=== PATIENT | male | born 1935 | race Two or more races ===

== ENCOUNTER 2024-05-05 07:59 | Emergency (ER) | payer MEDICARE, MEDICAID, SELFPAY ==
[2024-05-05] VITALS (35 sets, daily range): BP systolic 89–157; BP diastolic 46–77; PULSE 55–89; RESP 8–99; TEMP 36.3–37.1; O2SAT 94–100; BMI 25.0
--- NOTE | 2024-05-05 08:17 | XR_ITS ---
Examination: Left shoulder 2 views TECHNIQUE: AP internal rotation Y-view left shoulder 2 views Exam date and time: May 05, 2024 0831 hours INDICATIONS: Onset shoulder pain today. 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
--- NOTE | 2024-05-05 08:18 | EDRME_ITS ---
Rapid Medical Screening Exam [facility] Arrival date/time: 05/05/24 07:59 88-year-old male with a history of hyperlipidemia, hypertension, presents to the emergency room with a chief complaint of a deformity to his left shoulder. Patient was sent over by his [facility] for 10 out of 10 pain. I have greeted and performed a focused initial assessment of this patient. A comprehensive ED assessment and evaluation of the patient, analysis of all test results, and completion of the medical decision making process will be conducted by additional ED providers. Vital signs: Vital Signs Temperature 98.7 F 05/05/24 08:01 Pulse Rate 89 05/05/24 08:01 Respiratory Rate 17 05/05/24 08:01 Blood Pressure 132/70 H 05/05/24 08:01 Pulse Oximetry (%) 94 L 05/05/24 08:01 Oxygen Delivery Method Room Air 05/05/24 08:01 Vital signs reviewed by provider: Yes
--- NOTE | 2024-05-05 08:24 | PC.NURSE ---
PT BIB [facility] PER EMS PT HAS DISLOCATED SHOULDER FROM 2 WEEKS PRIOR AND IS PENDING A STAT REFERRAL. [facility] CALLED BECAUSE HE WAS HAVING PAIN THAT WAS UNRELIVED FROM MEDICATIONS. PT IS STATELESS SPEAKING ONLY AND NEED TO MAKE PT AWARE WHAT YOU ARE DOING TO HAVE HIM COMPLY HE HAS A HX OF DEMENTIA.
--- NOTE | 2024-05-05 09:08 | PC.CC ---
Reanna GALINDO was consulted by Zahra Ardon regarding a shoulder dislocation for the patient. MATEO made contact with JACQUELIN Jha at [facility] who reports patient was asked multiple times to be sent to the hospital to have his shoulder looked at as he has hardware placed. Patient refused multiple times to come to the hospital. Family also attempted to convince patient to come to the hospital and he continued to decline. Per JACQUELIN Jha, the facility Doctor ordered a STAT x-ray which showed a dislocation. Patient was referred to outpatient ORTHO but is pending insurance authorization, per Yudelka. Today JACQUELIN Jah, convinced the patient to come to the hospital and was the transported by EMS. JACQUELIN Jha, reports that patient can be combative at times and wanted to make sure staff was aware. ASW provided update to [facility].
--- NOTE | 2024-05-05 09:20 | PD.EDUPEX ---
Upper Extremity Injury RME/HPI General Chief Complaint: Extremity Injury, Upper Stated Complaint: PAIN DUE TO LT SHOULDER DISLOCATION Time Seen by Provider: 05/05/24 08:56 Arrival date/time: 05/05/24 07:59 RME / HPI RME / HPI narrative: 05/05/24 07:59 88-year-old male with a history of hyperlipidemia, hypertension, presents to the emergency room with a chief complaint of a deformity to his left shoulder. Patient was sent over by his senior living for 10 out of 10 pain. I have greeted and performed a focused initial assessment of this patient. A comprehensive ED assessment and evaluation of the patient, analysis of all test results, and completion of the medical decision making process will be conducted by additional ED providers. DR. YI MAIN ED EVALUATION: This section includes all my notes and documentations, including HPI, PE, and ED course.? Quinton Yi MD HPI: 88 year old male with past medical history significant for dementia presents to the Emergency Department BIB from [facility] with complaint of left shoulder dislocation and pain per [facility] staff. Started about 8 days ago. No obvious injury. ROS: Can't obtain from the patient due to severe dementia. Physical Exam: General:? Alert.? No acute distress when remaining still.? Eyes:? Conjunctivae and lids clear. ENT:? No nasal congestion.? ? Neck:? Supple. Heart:? RRR. Lungs:? No respiratory distress.? Good air movement.? No rhonchi, wheezing, rales.? Musculoskeletal: Remarkable for left shoulder deformity and limited range of motion due to pain. Distally, no NVT injury. I reviewed all diagnostic test results. 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 At this point, diagnoses include closed dislocation of left shoulder. For left shoulder dislocation reduction, we used Versed 5 mg IV X 2 and fentanyl 50 mcg IV X 2 for conscious sedation, see procedure note. Due to severe respiratory distress postprocedure, he was given Narcan and flumazenil with significant improvement. I discussed the case with Dr. Chaidez ([facility]).? About the presentation and exam and diagnostics and treatments here.? And need of further care there. Will accept the patient. No orthostatic service here today. Quinton Yi MD Related Data Home Medications ?Medication ?Instructions ?Recorded ?Confirmed atorvastatin 40 mg tablet (Lipitor) 40 mg PO HS CHOLESTEROL #0 tabs 04/15/15 12/20/23 folic acid 1 mg tablet 1 mg PO QDAY SUPPLEMENT #0 tabs 04/15/15 12/20/23 Previous Rx's ?Medication ?Instructions ?Recorded clopidogrel 75 mg tablet (Plavix) 75 mg PO QDAY #30 tabs 04/20/15 lisinopril 20 mg tablet 20 mg PO BID #60 tabs 04/20/15 ferrous sulfate 325 mg (65 mg 325 mg PO BID #60 tabs 05/19/17 iron) tablet amlodipine 5 mg tablet 10 mg (2 x 5 mg) PO QDAY #30 tabs 05/20/17 metoprolol tartrate 25 mg tablet 25 mg PO BID #60 tabs 05/20/17 Allergies Allergy/AdvReac Type Severity Reaction Status Date / Time No Known Allergies Allergy Verified 04/02/17 23:42 Course Quality Measures none Orders Category Date Time Status COVID-19 Screening Questionnaire NOW Care 05/05/24 13:36 Active Insert IV STAT Care 05/05/24 08:18 Active Referral - [employer] Stat Cons 05/05/24 10:31 Active Transfer to another facility [Transfer/Discharge] Stat Discharge 05/05/24 13:39 Active XR shoulder LT min 2V Stat Exams 05/05/24 08:17 Completed CBC Stat Lab 05/05/24 08:18 Completed CMP [Comprehensive Metabolic Panel] Stat Lab 05/05/24 09:16 Completed Midazolam Inj [Versed Inj] Med 05/05/24 12:16 Discontinued 5 mg IV X1 ONE Midazolam Inj [Versed Inj] Med 05/05/24 12:54 Discontinued 5 mg IV X1 ONE Midazolam Inj [Versed Inj] Med 05/05/24 12:51 Discontinued 6 mg .ROUTE .STK-MED ONE NALOXONE INJ (Vial) [Narcan Inj (Vial)] Med 05/05/24 13:12 Discontinued 1 mg IV X1 ONE fentaNYL INJ [Sublimaze Inj] Med 05/05/24 12:16 Discontinued 50 mcg IV X1 ONE fentaNYL INJ [Sublimaze Inj] Med 05/05/24 12:55 Discontinued 50 mcg IV X1 ONE flumazeniL [Romazicon Inj] Med 05/05/24 13:13 Discontinued 0.2 mg IVP X1 ONE Vital Signs Vital signs: Vital Signs Temperature 98.7 F 05/05/24 08:01 Pulse Rate 89 05/05/24 08:01 Respiratory Rate 17 05/05/24 08:01 Blood Pressure 132/70 H 05/05/24 08:01 Pulse Oximetry (%) 94 L 05/05/24 08:01 Oxygen Delivery Method Room Air 05/05/24 08:01 Procedures -ED Orthopedic Joint Reduction Joint #1: Time Out Performed: Yes Side: Left Joint Reduction Location: shoulder Analgesia: procedural sedation Shoulder Technique Used (if applicable): traction/counter-traction Technique used: traction/counter-traction Post-reduction neuro exam: intact Post-reduction vascular: intact Post Reduction X-Ray Obtained: No Splint Applied: Yes Patient Tolerated Procedure: no complications Additional Comments: Initially, we successfully reduced the dislocation. But dislocated again while applying the arm sling. Didn't attempt again due to prosthetic joint and the dislocation occurred over a week ago. Quinton Yi MD Extremity Injury MDM Narrative MDM Narrative:: IGuillermina am scribing for and in the presence of Dr. Yi. Patient data External records reviewed:: EMS form and [facility] records Clinical information provided by:: EMS Social determinants that could affect healthcare access:: housing ([facility] ) Patient has the following chronic illnesses:: Dementia How is presenting disease/condition affected by chronic disease/condition?: uneffected by Evaluation data The following diagnostics were reviewed and interpreted by me:: lab results and radiology exam(s) Lab and/or radiology exams considered but not ordered:: none Interpretation Summary: Closed dislocation of left shoulder Medications / Prescriptions Medications or Prescriptions considered but not ordered:: none Medication administrations:: Medication Administration History Discontinued Medications Fentanyl Citrate (Fentanyl Cit Inj 50 Mcg/Ml Amp 2ml) 50 mcg IV X1 ONE Stop: 05/05/24 12:17 Last Admin: 05/05/24 12:53 Dose: 50 mcg Documented By: BD Fentanyl Citrate (Fentanyl Cit Inj 50 Mcg/Ml Amp 2ml) 50 mcg IV X1 ONE Stop: 05/05/24 12:56 Last Admin: 05/05/24 12:59 Dose: 50 mcg Documented By: BD Flumazenil (Flumazenil Inj 0.1 Mg/Ml Vial 10 Ml) 0.2 mg IVP X1 ONE Stop: 05/05/24 13:14 Last Admin: 05/05/24 13:15 Dose: 0.2 mg Documented By: BD Midazolam HCl (Midazolam Inj 1 Mg/Ml Vial 2 Ml) 5 mg IV X1 ONE Stop: 05/05/24 12:17 Last Admin: 05/05/24 12:50 Dose: 5 mg Documented By: BD Midazolam HCl (Midazolam Inj 1 Mg/Ml Vial 2 Ml) 5 mg IV X1 ONE Stop: 05/05/24 12:55 Last Admin: 05/05/24 12:58 Dose: 5 mg Documented By: BD Midazolam HCl (Midazolam Inj 1 Mg/Ml Vial 2 Ml) Confirm Administered Dose 6 mg .ROUTE .STK-MED ONE Stop: 05/05/24 12:52 Last Admin: 05/05/24 13:23 Dose: Not Given Documented By: BD Non-Admin Reason: Duplicate Medication on eMAR Naloxone HCl (Naloxone Inj 0.4 Mg/Ml Vial) 1 mg IV X1 ONE Stop: 05/05/24 13:13 Last Admin: 05/05/24 13:18 Dose: 1 mg Documented By: SAIRA Co-signed By: [facility] Fentanyl Citrate 100 mcg IV total, Flumazenil 0.2 mg IVP, Midazolam HCl 10 mg IV total, Naloxone HCl 1 mg IV Consultations Consultation(s) initiated? (list below): No Diagnosis Upper Extremity Injury Differential Diagnosis: dislocation of shoulder, fracture of clavicle and other (shoulder fracture) Most likely diagnosis given after review of the tests above:: Closed dislocation of left shoulder Admission Indicated Admission indicated?: not indicated Explain why admission is indicated or not indicated:: No orthopedic service here today Admission Request Was there a request for admission?: No Disposition Plan Disposition Plan: Transfer Discharge Plan Plan Patient Disposition: [facility] Pt Being Transferred to: [facility] Service Needed for Transfer: Orthopedics Prescriptions/Referrals Prescriptions/Med Rec: No Action folic acid 1 MG tablet 1 mg PO QDAY Qty: 0 atorvastatin [Lipitor] 40 MG tablet 40 mg PO HS Qty: 0 lisinopril 20 MG tablet 20 mg PO BID Qty: 60 0RF clopidogrel [Plavix] 75 MG tablet 75 mg PO QDAY Qty: 30 0RF ferrous sulfate 325 mg (65 mg iron) tablet 325 mg PO BID Qty: 60 0RF amlodipine 5 mg Tablet 10 mg PO QDAY Qty: 30 0RF metoprolol tartrate 25 mg Tablet 25 mg PO BID Qty: 60 0RF Referrals: No Primary/Family,Physician [Primary Care Provider] - In 1 week Problem List Clinical Impression: Closed dislocation of left shoulder Patient/Caregiver Discharge Instructions Print Language: Turkish Stand Alone Forms: Sonia Award Info., Patient Portal Info Letter
[2024-05-05 09:38] LABS: Basophils % (Auto) 0 % (0-2.5); Eosinophils % (Auto) 1 % (0-10); Hematocrit 35.1 % (41.0-53.0); Immature Granulocytes % (Auto) 1 % (0-0); Immature Granulocytes Auto 0.03 Thou/mm3 (0.00-0.00); Lymphocytes # (Auto) 1.5 Thou/mm3 (1.0-4.8); Lymphocytes % (Auto) 25 % (10-50); Mean Corpuscular HGB Conc 34.2 g/dl (31.0-37.0); Mean Corpuscular Hemoglobin 32.7 pg (25.0-35.0); Mean Corpuscular Volume 96 fL (80-100); Monocytes # (Auto) 0.3 Thou/mm3 (0.0-0.8); Monocytes % (Auto) 6 % (0-12); Neutrophils # (Auto) 3.9 Thou/mm3 (1.8-7.7); Neutrophils % (Auto) 67 % (37-80); Nucleated Red Blood Cell % 0 /100 WBC (0); Platelet Count 144 Thou/mm3 (140-440); RDW Standard Deviation 49.2 fL (35.1-43.9); Red Blood Count 3.67 Miln/mm3 (4.50-5.90); White Blood Count 5.8 Thou/mm3 (3.8-10.6)
[2024-05-05 10:01] LABS: Alanine Aminotransferase 10 U/L (10-49); Albumin, Serum 4.2 gm/dL (3.4-4.8); Albumin/Globulin Ratio 1.6 (1.2-2.2); Alkaline Phosphatase 119 U/L (46-116); Anion Gap 7 (7-16); Aspartate Amino Transferase 11 U/L (0-34); BUN/Creatinine Ratio 24 Ratio (12-20); Bilirubin,Total 0.5 mg/dL (0.3-1.2); Blood Urea Nitrogen 22 mg/dL (9-23); Calcium 9.7 mg/dL (8.3-10.6); Calcium (Corrected) 9.7 mg/dL (8.5-10.1); Carbon Dioxide 25.9 mMol/L (20.0-31.0); Chloride 108 mMol/L (98-107); Creatinine (Component) 0.9 mg/dL (0.6-1.3); Globulin 2.7 gm/dL (2.3-3.5); Glucose 122 mg/dL (74-106); Osmolality,Calculated 285 (275-295); Potassium 4.1 mMol/L (3.4-5.1); Sodium 141 mMol/L (136-145); Total Protein 6.9 gm/dL (5.7-8.2); eGFR > 60 See Note
--- NOTE | 2024-05-05 10:30 | PC.CC ---
Addendum entered by Brooklyn Mcdonald RN 05/05/24 15:10: 1508 called [facility] to inform crop picker time, left VM. 1505 called ED charge nurse and informed abpot crop picker time is 1830. Addendum entered by Brooklyn Mcdonald RN 05/05/24 15:05: 1456 sent paperwork to [facility]. Called [facility], spoke to [facility] and set up the transport. The crop picker time is 1830. 1445 transfer packet is complete with CD inside including all signatures. Transfer packet and number to call for report given to charge nurse. Addendum entered by Brooklyn Mcdonald RN 05/05/24 13:13: 1307 received call from Dariela at [facility] that pt is accepted for ED to ED transfer. Accepted by Dr. Chaidez. Report can be called at [phone]. Addendum entered by Brooklyn Mcdonald RN 05/05/24 13:02: 1254 received call from [facility], spoke to Dariela and initiated the transfer. Ro wants to speak with Dr. Alejandra. Conference call connected. 1241 received call from [facility], spoke to Steffany, She stated Dr. Mireles stated he doesn't do this kind of procedure. But pt can be followed as outpatient with any orthopedic. Therefore, transfer is declined. Addendum entered by Brooklyn Mcdonald RN 05/05/24 12:18: 1217 called [facility] to initiate the transfer, left VM. Addendum entered by Brooklyn Mcdonald RN 05/05/24 12:16: 1216 images pushed over to [facility]. Addendum entered by Brooklyn Mcdonald RN 05/05/24 12:11: 1207 received call from Steffany at [facility], she wants to speak with Dr. Alejandra. Conference call connected. Then Ny tried to connect Dr. Mireles orthopedic on the line for peer to peer. But unable to do so. She stated she will call back once Dr. Mireles call her back. Addendum entered by Brooklyn Mcdonald RN 05/05/24 12:07: 1207 clinicals sent to [facility]. Addendum entered by Brooklyn Mcdonald RN 05/05/24 11:49: 1147 called [facility], spoke to Steffany and initiated the transfer request. She stated she will call me back. Addendum entered by Brooklyn Mcdonald RN 05/05/24 11:12: 1111 Called [facility] to initiate the transfer, left VM. Original Note: 1053 clinicals sent to [facility]. [address] Alejandra that pt needs to be transferred for left shoulder dislocation with prosthetic shoulder joint needs orthopedic services.
--- NOTE | 2024-05-05 12:24 | PC.NURSE ---
ATTEMPTED TO GET CONSENT FOR CONSCIOUS SEDATION NO ANSWERING MESSAGE LEFT TO CALL BACK
--- NOTE | 2024-05-05 12:28 | PC.NURSE ---
TELEPHONE CONSENT FOR CONSCIOUS SEDATION OBTAINED FROM [facility] ADVISED THAT IF WERE ARE NOT ABLE TO PLACE LEFT SHOULDER BACK IN TO PLACE HE WILL BE TRANSFERRED OUT TO ANOTHER FACILITY
[2024-05-05] MEDS: MIDAZOLAM INJ 1 MG/ML VIAL 2 ML 5 MG IV ×2 (12:50→12:58)
[2024-05-05] MEDS: fentaNYL CIT INJ 50 mCg/ML AMP 2ML IV ×2 (12:53→12:59)
[2024-05-05] MEDS: FLUMAZENIL INJ 0.1 MG/ML VIAL 10 ML 0.2 MG IVP (13:15)
[2024-05-05] MEDS: NALOXONE INJ 0.4 MG/ML VIAL 1 MG IV (13:18)
--- NOTE | 2024-05-05 13:29 | PC.NURSE ---
@ 1244 pt is in room for conscious sedation @1245 time out called @1246 procedure start @1250 5mg versed given @1253 50mcg fentanyl given provider tried to set arm pt was not fulled sedated ordered 5mg versed, 50mcg of fetanyl @1258 5mg versed given @1259 50mcg of fentanyl given 1300 rt was bagging pt decreased respirations 1301 procedure complete arm places in immobilizer 1306 rt bagging pt decreased respirations 1315 flumazenil given per order 1316 pt started open eyes 1319 1mg narcan given 1322 pt now opening eyes moving legs responded appropriately
--- NOTE | 2024-05-05 13:41 | PC.NURSE ---
PER DR. YI, PT ACCEPTED TO [facility] IN [place]
--- NOTE | 2024-05-05 13:44 | PC.NURSE ---
per brother pt has not been exposed to covid
--- NOTE | 2024-05-05 13:49 | PC.NURSE ---
linen changed and pt moved up on gurney with 2 person assist. Pt opening eyes when talked to then closes eyes again. Will continue to monitor
--- NOTE | 2024-05-05 13:58 | PC.NURSE ---
pt now responding quicker when name called
--- NOTE | 2024-05-05 16:35 | PC.NURSE ---
CALLED BROTHER NEY TO ADVISED THAT HE IS GOING TO [facility] HE ASKED IF HE COULD GO TO [facility] ADVISED THAT [facility] WAS THE ONLY ONE THAT ACCEPTED THEM.
== END 2024-05-05 17:35 | disposition short-term general hospital (02) ==
PROVIDERS: Nurse Practitioner Family; Emergency Provider Emergency Medicine
DX: S43.005A Unspecified dislocation of left shoulder joint, initial encounter (principal); X58.XXXA Exposure to other specified factors, initial encounter; E78.5 Hyperlipidemia, unspecified; I10 Essential (primary) hypertension; F03.90 Unspecified dementia, unspecified severity, without behavioral disturbance, psychotic disturbance, mood disturbance, and anxiety
CPT/HCPCS: 23655; 36415; 73030; 80053; 85025; 96374; 99285; J2250; J2310; J3010; J3490

== ENCOUNTER 2024-05-07 20:10 | Inpatient (IN) | payer MEDICARE, MEDICAID, SELFPAY ==
--- NOTE | 2024-05-07 20:31 | PC.NURSE ---
Accessed chart to assist primary nurse.
[2024-05-07 20:44] VITALS: BP 132/65; PULSE 80; RESP 17; TEMP 36.8; O2SAT 98
[2024-05-07 21:04] LABS: Basophils % (Auto) 0 % (0-2.5); Eosinophils % (Auto) 0 % (0-10); Hemoglobin 12.3 g/dL (13.5-16.0); Immature Granulocytes % (Auto) 0 % (0-0); Immature Granulocytes Auto 0.02 Thou/mm3 (0.00-0.00); Lymphocytes # (Auto) 1.5 Thou/mm3 (1.0-4.8); Lymphocytes % (Auto) 21 % (10-50); Mean Corpuscular HGB Conc 34.2 g/dl (31.0-37.0); Mean Corpuscular Hemoglobin 32.2 pg (25.0-35.0); Mean Corpuscular Volume 94 fL (80-100); Monocytes # (Auto) 0.6 Thou/mm3 (0.0-0.8); Monocytes % (Auto) 8 % (0-12); Neutrophils % (Auto) 70 % (37-80); Nucleated Red Blood Cell % 0 /100 WBC (0); Platelet Count 148 Thou/mm3 (140-440); RDW Standard Deviation 46.7 fL (35.1-43.9); Red Blood Count 3.82 Miln/mm3 (4.50-5.90); White Blood Count 7.1 Thou/mm3 (3.8-10.6)
[2024-05-07 21:23] LABS: Alanine Aminotransferase 17 U/L (10-49); Albumin, Serum 4.5 gm/dL (3.4-4.8); Anion Gap 13 (7-16); Aspartate Amino Transferase 37 U/L (0-34); BUN/Creatinine Ratio 21 Ratio (12-20); Blood Urea Nitrogen 21 mg/dL (9-23); Calcium 9.9 mg/dL (8.3-10.6); Calcium (Corrected) 9.9 mg/dL (8.5-10.1); Carbon Dioxide 22.9 mMol/L (20.0-31.0); Chloride 107 mMol/L (98-107); Globulin 2.7 gm/dL (2.3-3.5); Glucose 97 mg/dL (74-106); Osmolality,Calculated 287 (275-295); Potassium 3.9 mMol/L (3.4-5.1); Sodium 143 mMol/L (136-145); Total Protein 7.2 gm/dL (5.7-8.2); eGFR > 60 See Note
[2024-05-07 21:24] LABS: Albumin/Globulin Ratio 1.7 (1.2-2.2); Alkaline Phosphatase 140 U/L (46-116)
[2024-05-08] VITALS: BP 117/54; PULSE 76; RESP 16; TEMP 36.5; O2SAT 95
[2024-05-08 04:00] VITALS: BP 103/61; PULSE 71; RESP 15; TEMP 36.7; O2SAT 99
--- NOTE | 2024-05-08 07:25 | PC.NURSE ---
md NOTIFIED ON PT. bg PG 68 . PT. OPEN EYES AND TELLS NAME BUT NO VERBALIZE AFTER THAT. BEEN REFUSING TO EAT OR DRINK.
[2024-05-08] MEDS: DEXTROSE 50%-WATER INJ 50 ML SYRINGE 25 ML IV (07:47)
[2024-05-08 08:00] VITALS: BP 115/54; PULSE 80; RESP 17; TEMP 36.3; O2SAT 97
[2024-05-08 09:16] LABS: Basophils % (Auto) 0 % (0-2.5); Eosinophils % (Auto) 0 % (0-10); Hematocrit 35.9 % (41.0-53.0); Hemoglobin 12.2 g/dL (13.5-16.0); Immature Granulocytes % (Auto) 0 % (0-0); Immature Granulocytes Auto 0.03 Thou/mm3 (0.00-0.00); Lymphocytes # (Auto) 1.8 Thou/mm3 (1.0-4.8); Lymphocytes % (Auto) 18 % (10-50); Mean Corpuscular Hemoglobin 32.5 pg (25.0-35.0); Mean Corpuscular Volume 96 fL (80-100); Monocytes # (Auto) 0.6 Thou/mm3 (0.0-0.8); Monocytes % (Auto) 6 % (0-12); Neutrophils # (Auto) 7.5 Thou/mm3 (1.8-7.7); Neutrophils % (Auto) 75 % (37-80); Nucleated Red Blood Cell % 0 /100 WBC (0); Platelet Count 148 Thou/mm3 (140-440); RDW Standard Deviation 48.9 fL (35.1-43.9); Red Blood Count 3.75 Miln/mm3 (4.50-5.90)
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
--- NOTE | 2024-05-08 09:31 | ESHP_ITS ---
<Statement entered by Jenny Bailon MD - 05/09/24 00:32> Patient was seen and examined by me personally. I have directly supervised and reviewed documentation by the team resident and agree with its findings with any exceptions or additional findings as below. Plan of care was discussed with the attending, Dr. Urbina. New transfer overnight. Patient is a 88-year-old male with past medical history of dementia, diabetes mellitus, hypertension, BPH, shoulder arthroplasty 7 years ago, and CVA who initially presented to [facility] ED on 05/05/2024 due to left shoulder pain and assessment for dislocation. At that time, patient was transferred to [facility] for orthopedic coverage. Per chart review, [facility] orthopedics stated that this patient was not a candidate for surgical intervention for the dislocation and that the dislocation was of chronic status. The recommendation was that the patient follow-up with staffing specialist outpatient. Patient is now transferring back to [facility] on 05/07/2024. Patient is a resident at [facility] and he is wheelchair dependent at baseline with dementia. Last night and this morning, there were concerns that the patient was non-interactive and refusing care as well as food. Blood glucose was 68 this morning and patient was refusing juice, therefore 25 ml of D50 was administered. Later in the morning patient seemed to be taking PO spoonfuls of pudding. He passed swallow evaluation who suggested dysphagia 2, mechanical altered diet. On AM labs, creatinine markedly increased from 1.0 to 2.2 in just 12 hours, repeat draw also showed the same increase in creatinine. Uncertain what may have caused the acute kidney injury, other than poor PO intake, as the patient did not receive any medications overnight since arrival to the facility. Will start IV fluids at 75 ml/hr for total 2L. Will await improvement in kidney function prior to discharge back to [facility]. Jenny Bailon, PGY-2 Documentation for date of: 05/08/24 HPI History of Present Illness Chief complaint: L shoulder dislocation History of present illness: 88-year-old male with past medical history of dementia, diabetes mellitus, hypertension, BPH, shoulder arthroplasty 7 years ago, CVA presented after being transferred from [facility] for a shoulder dislocation. Patient had initially presented to [facility] for left shoulder pain and assessment for dislocation. At that time, patient was transferred to [facility] for orthopedic coverage. Patient is transferring back on 05/07/2024. Per chart review, orthopedic physician stated that this patient was not a candidate for surgical intervention for the dislocation and that the dislocation was of chronic status. At this time, the recommendation was that the patient follow-up with staffing specialist outpatient. Patient is a resident at [facility] and he is wheelchair dependent at baseline with dementia. Medical history: As listed above Surgical history: Unable to obtain Allergies: No known allergies per facility records Medications: Acetaminophen as needed, amlodipine 10 mg daily, Dulcolax suppository as needed, Fleet enema as needed, Flomax daily, lidocaine patch daily for left shoulder chronic pain, atorvastatin 40 mg at bedtime, losartan 100 mg daily, Milk of Magnesia suspension as needed, naproxen to 20 mg as needed. Family History: Unable to obtain Social history: Resident at [facility]; unable to obtain remaining social history ROS: Unable to obtain as patient answers very rarely Exam Vital Signs Temp Pulse Resp BP Pulse Ox O2 Del Method 98.0 F 71 15 103/61 99 Room Air 05/08/24 04:00 05/08/24 04:00 05/08/24 04:00 05/08/24 04:00 05/08/24 04:00 05/08/24 04:00 Narrative Exam Physical Exam: GENERAL: Awake, answers questions very rarely and with low voice, appears stated age HEENT: NC/AT. Moist mucosa. PERRLA/EOMI. CARDIO: Heart RRR, II/ systolic ejection murmur noted on L sternal border 2nd intercostal space, no JVD. PULM: No coughing or visible SOB. Lungs CTA B/L. GI: Abdomen soft, NT/ND, +BS. SKIN/MSK/EXT: No wounds/discoloration/rashes/edema/amputations. +Pedal pulses present B/L. NEURO: Oriented x0 (unable to assess as patient answers very rarely), no focal neurological deficits noted - baseline dementia Results: Labs 05/09/24 05:30 05/09/24 05:30 Labs: Short CBC 05/07/24 05/08/24 Range/Units 20:52 08:59 WBC 7.1 10.0 D (3.8-10.6) Thou/mm3 Hgb 12.3 L 12.2 L (13.5-16.0) g/dL Hct 36.0 L 35.9 L (41.0-53.0) % Plt Count 148 148 (140-440) Thou/mm3 BMP 05/07/24 20:52 Sodium 143 Potassium 3.9 Chloride 107 Carbon Dioxide 22.9 BUN 21 Creatinine 1.0 Glucose 97 Calcium 9.9 Liver Function 05/07/24 Range/Units 20:52 Total Bilirubin 1.0 D (0.3-1.2) mg/dL AST 37 H (0-34) U/L ALT 17 (10-49) U/L Alkaline Phosphatase 140 H D (46-116) U/L Albumin 4.5 (3.4-4.8) gm/dL Quality Measures Quality Measures VTE prophylaxis Advance care planning discussed with:: sibling and other Medications Home Medications and Allergies Home Medications ?Medication ?Instructions ?Recorded ?Confirmed ?Type atorvastatin 40 mg tablet (Lipitor) 40 mg PO HS CHOLES TEROL #0 tabs 04/15/15 05/07/24 History acetaminophen 325 mg capsule 325 mg PO Q4H PRN pain (s ella 05/07/24 05/07/24 History score 1-3) amlodipine 10 mg tablet 10 mg PO 1XD 05/07/24 History hydrochlorothiazide 12.5 mg capsule 12.5 mg PO 1XD 09/2405/07/24 History lidocaine 4 % topical patch 1 patch topical Q12H PRN p ain 05/07/24 05/07/24 History (Aspercreme (lidocaine)) losartan 100 mg tablet 100 mg PO 1XD 05/07/2405/07 History naproxen sodium 220 mg tablet 220 mg PO Q8H pain 05/0705/07/24 History (Flanax (naproxen)) tamsulosin 0.4 mg capsule 0.4 mg PO 1XD 05/07/2405/07 History tramadol 50 mg tablet 50 mg PO 2XD 05/07/24 History Allergies Allergy/AdvReac Type Severity Reaction Status Date / Time No Known Allergies Allergy Verified 04/02/17 23:42 Visit Medications Acetaminophen (Acetaminophen 325 Mg Tablet) 650 mg PO Q6HR PRN PRN Reason: PAIN SCALE 1-3 (mild Stop: 06/06/24 20:29 Hydrocodone Bitart/Acetaminophen (Hydrocodone/Apap 5/325 Tablet) 1 tab PO Q6HR PRN PRN Reason: PAIN SCALE 4-6 (Moderate Stop: 05/12/24 20:30 Atorvastatin Calcium (Atorvastatin Calcium 20 Mg Tablet) 40 mg PO HS AILYN Stop: 06/07/24 20:59 Dextrose (Dextrose 50%-Water Inj 50 Ml Syringe) 25 ml IV Q15MIN PRN PRN Reason: BG 50-70 responsive npo pt Stop: 06/07/24 07:36 Last Admin: 05/08/24 07:47 Dose: 25 ml Dextrose (Dextrose 50%-Water Inj 50 Ml Syringe) 50 ml IV Q15MIN PRN PRN Reason: BG <50 OR BG <70 & pt unresponsive Stop: 06/07/24 07:36 Glucagon (Glucagon Inj 1 Mg Vial) 1 mg IM Q15MIN PRN PRN Reason: BG <70, and no IV access Insulin Human Lispro (Insulin Lispro (Admelog) 1 Unit/0.01 Ml Unit) 0 unit SC AC [facility]; Protocol Stop: 06/07/24 11:29 Tamsulosin HCl (Tamsulosin Hcl 0.4 Mg Capsule) 0.4 mg PO QDAY AILYN Stop: 06/07/24 08:59 Last Admin: 05/08/24 08:26 Dose: Not Given Discontinued Medications Non-Formulary Medication (Lidocaine [Aspercreme (Lidocaine)]) 1 patch TOPICAL Q12H PRN PRN Reason: pain Assessment & Plan Plan 88-year-old male with past medical history of dementia, hypertension, BPH, shoulder arthroplasty 7 years ago, CVA presented after being transferred from [facility] for a shoulder dislocation; pending SNF placement. #Chronic shoulder dislocation Patient is transferring back from [facility] after no surgery was completed as the patient is not a candidate Per note from [facility] orthopedic surgeon, Dr. Chaidez, due to the chronicity of the dislocation and the fact that there is no neurovascular compromise or skin compromise a reduction under anesthesia would bring significant risks to the patient; furthermore, a close reduction has the risk of fracture. As such, recommendation is that the patient's pain be managed and that patient can follow-up outpatient with orthopedic surgery Plan: Multimodal analgesia Follow-up with orthopedic surgery outpatient #NOVA #Prerenal Azotemia Patient has abrupt elevation in creatinine from 1.0 to 2.2/2.3 No new medications were started; moreover, suspicion is that the patient is having prerenal azotemia Patient does have poor p.o. intake and appears dry on examination Plan: IV resuscitation Bladder scan showed ~150cc; will monitor Avoid nephrotoxic agents Follow-up morning labs #Hypertension #Hyperlipidemia Patient is on home amlodipine 10 mg, hydrochlorothiazide 12.5 mg, losartan 100 mg Patient also takes home atorvastatin 40 mg p.o. at bedtime Plan: Restart when appropriate, patient's blood pressure within target level at this time #Dementia #History of CVA #BPH Chronic medical conditions, not currently pertinent to the following presentation Continue home tamsulosin Hospital Management; Lines: PIV Diet: Carb consistent, dysphagia II Bowel: Senna GI prophylaxis: not needed DVT prophylaxis: SCDs Dispo: Treating NOVA, pending SNF placement Code: Full Patient seen and assessed with attending Dr. Urbina and senior resident Dr. Adamaris Shah, PGY-1 Attending Provider Attestation/Addendum I have examined the patient, reviewed labs and imaging findings, discussed the case with the resident(s), and reviewed entered orders. I agree with the plan of care as outlined in this note. Patient seen at bedside. Patient was transferred overnight. Patient is relatively nonverbal and no history can be obtained. Patient was transferred back from [facility] after it was determined she is not a surgical candidate for his dislocation of the reverse left shoulder arthroplasty. We will continue pain management as needed. Patient was planned for discharge today although he has had an acute increase in his creatinine. Creatinine on admission 1.0 and BUN. Today's renal panel shows creatinine of 2.2 and BUN 28. At this time we do not have any reason for patient's acute increase in creatinine. Likely secondary to prerenal azotemia as patient has had poor oral intake. We will start low-dose IV fluids and if no improvement we will consult nephrology. Dr. Carlitos MD
[2024-05-08 09:34] LABS: Alanine Aminotransferase 14 U/L (10-49); Albumin, Serum 4.2 gm/dL (3.4-4.8); Albumin/Globulin Ratio 1.6 (1.2-2.2); Alkaline Phosphatase 133 U/L (46-116); Anion Gap 13 (7-16); Aspartate Amino Transferase 17 U/L (0-34); BUN/Creatinine Ratio 13 Ratio (12-20); Blood Urea Nitrogen 28 mg/dL (9-23); Calcium 9.6 mg/dL (8.3-10.6); Calcium (Corrected) 9.6 mg/dL (8.5-10.1); Carbon Dioxide 20.2 mMol/L (20.0-31.0); Chloride 108 mMol/L (98-107); Creatinine (Component) 2.2 mg/dL (0.6-1.3); Globulin 2.7 gm/dL (2.3-3.5); Glucose 167 mg/dL (74-106); Osmolality,Calculated 290 (275-295); Potassium 4.4 mMol/L (3.4-5.1); Sodium 141 mMol/L (136-145); Total Protein 6.9 gm/dL (5.7-8.2); eGFR 28 See Note
[2024-05-08 11:18] VITALS: BMI 12.0
[2024-05-08 12:00] VITALS: BP 111/47; PULSE 81; RESP 18; TEMP 36.3; O2SAT 96
[2024-05-08 12:07] LABS: Albumin, Serum 4.1 gm/dL (3.4-4.8); Anion Gap 11 (7-16); BUN/Creatinine Ratio 14 Ratio (12-20); Blood Urea Nitrogen 32 mg/dL (9-23); Calcium 9.5 mg/dL (8.3-10.6); Calcium (Corrected) 9.5 mg/dL (8.5-10.1); Carbon Dioxide 22.5 mMol/L (20.0-31.0); Chloride 109 mMol/L (98-107); Creatinine (Component) 2.3 mg/dL (0.6-1.3); Glucose 99 mg/dL (74-106); Osmolality,Calculated 290 (275-295); Phosphorous 5.1 mg/dL (2.4-5.1); Potassium 4.4 mMol/L (3.4-5.1); Sodium 142 mMol/L (136-145); eGFR 26 See Note
[2024-05-08] MEDS: TAMSULOSIN HCL 0.4 MG CAPSULE PO (13:46)
[2024-05-08] MEDS: RINGERS LACTATED 1000 ML 1,000 ML 75 ML IV (13:57)
[2024-05-08 16:00] VITALS: BP 123/48; PULSE 66; RESP 18; TEMP 36.3; O2SAT 94
--- NOTE | 2024-05-08 17:45 | PC.NURSE ---
pt. urinated in brief unmeasurable output due to pt. urinated on brief.
--- NOTE | 2024-05-08 17:53 | PC.NURSE ---
notified about pt. had the red conjunctiva to the right eye with yellow discharge.
[2024-05-08 20:00] VITALS: BP 104/51; PULSE 73; RESP 17; TEMP 36.1; O2SAT 97
[2024-05-08] MEDS: ATORVASTATIN CALCIUM 20 MG TABLET 40 MG PO (20:09)
[2024-05-09] VITALS: BP 126/61; PULSE 81; RESP 18; TEMP 36.4; O2SAT 96
[2024-05-09] MEDS: RINGERS LACTATED 1000 ML 1,000 ML 75 ML IV ×2 (03:07→20:03)
[2024-05-09 04:00] VITALS: BP 123/54; PULSE 72; RESP 18; TEMP 36.5; O2SAT 94
[2024-05-09 06:34] LABS: Basophils % (Auto) 0 % (0-2.5); Eosinophils # (Auto) 0.1 Thou/mm3 (0.0-0.5); Eosinophils % (Auto) 1 % (0-10); Hematocrit 30.9 % (41.0-53.0); Hemoglobin 10.6 g/dL (13.5-16.0); Immature Granulocytes % (Auto) 0 % (0-0); Immature Granulocytes Auto 0.02 Thou/mm3 (0.00-0.00); Lymphocytes # (Auto) 2.1 Thou/mm3 (1.0-4.8); Lymphocytes % (Auto) 29 % (10-50); Mean Corpuscular HGB Conc 34.3 g/dl (31.0-37.0); Mean Corpuscular Hemoglobin 32.7 pg (25.0-35.0); Mean Corpuscular Volume 95 fL (80-100); Monocytes # (Auto) 0.7 Thou/mm3 (0.0-0.8); Monocytes % (Auto) 10 % (0-12); Neutrophils # (Auto) 4.3 Thou/mm3 (1.8-7.7); Neutrophils % (Auto) 59 % (37-80); Nucleated Red Blood Cell % 0 /100 WBC (0); Platelet Count 133 Thou/mm3 (140-440); RDW Standard Deviation 49.1 fL (35.1-43.9); Red Blood Count 3.24 Miln/mm3 (4.50-5.90); White Blood Count 7.2 Thou/mm3 (3.8-10.6)
[2024-05-09 06:51] LABS: Alanine Aminotransferase 11 U/L (10-49); Albumin, Serum 3.7 gm/dL (3.4-4.8); Albumin/Globulin Ratio 1.7 (1.2-2.2); Alkaline Phosphatase 115 U/L (46-116); Anion Gap 8 (7-16); Aspartate Amino Transferase 17 U/L (0-34); BUN/Creatinine Ratio 22 Ratio (12-20); Bilirubin,Total 0.9 mg/dL (0.3-1.2); Blood Urea Nitrogen 48 mg/dL (9-23); Calcium 9.1 mg/dL (8.3-10.6); Calcium (Corrected) 9.3 mg/dL (8.5-10.1); Chloride 109 mMol/L (98-107); Creatinine (Component) 2.2 mg/dL (0.6-1.3); Globulin 2.2 gm/dL (2.3-3.5); Glucose 95 mg/dL (74-106); Osmolality,Calculated 293 (275-295); Potassium 4.2 mMol/L (3.4-5.1); Sodium 141 mMol/L (136-145); Total Protein 5.9 gm/dL (5.7-8.2); eGFR 28 See Note
[2024-05-09 08:00] VITALS: BP 140/61; PULSE 68; RESP 16; TEMP 36.5; O2SAT 99
[2024-05-09] MEDS: TAMSULOSIN HCL 0.4 MG CAPSULE PO (08:20)
[2024-05-09] MEDS: SENNA TABLET 1 TAB PO (08:20)
--- NOTE | 2024-05-09 11:00 | XR_ITS ---
EXAMINATION: US renal BI HISTORY: NOVA COMPARISON: 05/17/2017, CT abdomen pelvis FINDINGS: Right kidney length: 10.8 cm. Right collecting system: No hydronephrosis. Right parenchyma: Mild cortical thinning. Cortical scarring. Inferior right renal pole exophytic 6.1 cm anechoic round lesion, previously measuring 5.[address] No internal color Doppler. Left kidney Length: 10.4 cm. Left collecting system: No hydronephrosis. Left parenchyma: Mild increased echogenicity. Interpolar 2.0 cm left renal hypoechoic/anechoic lesion without internal color Doppler. Bladder: Within normal limits. Bilateral ureteral jets seen. No post void imaging available. Other: Prostate with coarse calcifications. Prostate volume 33.0 cc. IMPRESSION: 1. Mild right cortical thinning and increased echogenicity of the left kidney, which can be seen with medical renal disease. 2. No obstructive nephrolithiasis or hydronephrosis identified. 3. Mild enlargement of the prostate gland.
[2024-05-09 12:00] VITALS: BP 144/60; PULSE 67; RESP 17; TEMP 37; O2SAT 99
--- NOTE | 2024-05-09 13:16 | CHAP ---
Patient was sleeping. The Spiritual Care Volunteer prayed silently. (Volunteer was in the hospital from 12:51-13:16).
--- NOTE | 2024-05-09 13:23 | ESCONSULT_ITS ---
HPI Data of Consult Consult date: 05/09/24 Requesting Physician: Fredis Urbina MD Admitting Provider: Fredis Urbina MD Attending Provider: Fredis Urbina MD Primary Care Provider: Physician No Primary/Family Consult Narrative Reason for consult: Acute kidney injury History of present illness: Patient is [place]-speaking, seems to have some hearing loss and had difficulty in communicating, so most of the history is taken from chart review. At baseline, patient is a resident at [facility] and is wheelchair dependent with baseline dementia A 88-year-old male patient with significant past medical history of dementia, diabetes mellitus, hypertension, BPH, shoulder arthroplasty 7 years ago, CVA initially presented to [facility] on 05/10/2023 for left shoulder pain and assessment for dislocation. During that time, patient was transferred to [facility] for further management. In [facility], other potation in that facility stated that patient was not a good surgical candidate for surgical intervention and the dislocation appears to be of chronic etiology. So patient was recommended to follow-up in outpatient basis with the orthopedic tech. So patient was transferred back to [facility] on 05/07/2024. Per chart review, patient did not get any procedures, contrast, pain medications Chart review of [facility] medical records, did not show any procedures, nephrotoxic medications, pain medications, low blood pressures during the hospitalization. Initial renal functions appears to be normal on 05/07/2024, on 05/08/2024 creatinine seems to be increased to 2.2. No low blood pressures/nephrotoxic medications noted during his hospital stay in [facility] 05/09/2024 Patient was seen and examined at the bedside. No acute overnight events. Patient appears to have difficulty to communicate at baseline. Denies any other complaints. Vitals are stable. Labs showed BUN 48, creatinine 2.2. Urine electrolytes are ordered Patient was getting renal ultrasound at the time of examination which showed a simple renal cyst in both kidneys. No hydroureteronephrosis noted Recommended to place condom catheter to monitor urine output as patient is wetting his diaper and not able to calculate output accurately. cc:: cc: Fredis Urbina MD Review of Systems Review of Systems ROS Unobtainable: unobtainable due to medical condition Exam Vital Signs Temp Pulse Resp BP Pulse Ox O2 Del Method 98.6 F 67 17 144/60 H 99 Room Air 05/09/24 12:00 05/09/24 12:00 05/09/24 12:00 05/09/24 12:00 05/09/24 12:00 05/09/24 12:00 Narrative Exam General: Awake. HEENT: Normocephalic, atraumatic, mucous membranes moist. Heart: Regular rate and rhythm, no murmurs. Lungs: Clear to auscultation with no wheezing or crackles. Abdomen: Soft, nondistended, nontender, positive bowel sounds. ?No guarding or rebound tenderness. Neurologic: Alert and oriented x3, no gross neurological deficit, and patient able to move all 4 extremities. Extremities: No edema. Skin: No rash or ecchymoses. Results Labs 05/10/24 05:41 05/10/24 05:41 Labs: Short CBC 05/09/24 Range/Units 05:30 WBC 7.2 (3.8-10.6) Thou/mm3 Hgb 10.6 L (13.5-16.0) g/dL Hct 30.9 L (41.0-53.0) % Plt Count 133 L (140-440) Thou/mm3 BMP 05/09/24 05:30 Sodium 141 Potassium 4.2 Chloride 109 H Carbon Dioxide 24.0 BUN 48 H Creatinine 2.2 H Glucose 95 Calcium 9.1 Liver Function 05/09/24 Range/Units 05:30 Total Bilirubin 0.9 (0.3-1.2) mg/dL AST 17 (0-34) U/L ALT 11 (10-49) U/L Alkaline Phosphatase 115 (46-116) U/L Albumin 3.7 (3.4-4.8) gm/dL Quality Measures Quality Measures VTE prophylaxis Advance care planning discussed with:: patient and other Medications Home Medications and Allergies Home Medications ?Medication ?Instructions ?Recorded ?Confirmed ?Type atorvastatin 40 mg tablet (Lipitor) 40 mg PO HS CHOLES TEROL #0 tabs 04/15/15 05/07/24 History acetaminophen 325 mg capsule 325 mg PO Q4H PRN pain (s ella 05/07/24 05/07/24 History score 1-3) amlodipine 10 mg tablet 10 mg PO 1XD 05/07/24 History hydrochlorothiazide 12.5 mg capsule 12.5 mg PO 1XD 09/2405/07/24 History Held on 05/10/24. Instructions: Resume on 05/17/24. Hold due to recent NOVA, resume with follow up renal panel lidocaine 4 % topical patch 1 patch topical Q12H PRN p ain 05/07/24 05/07/24 History (Aspercreme (lidocaine)) losartan 100 mg tablet 100 mg PO 1XD 05/07/2405/07 History naproxen sodium 220 mg tablet 220 mg PO Q8H pain 05/0705/07/24 History (Flanax (naproxen)) tamsulosin 0.4 mg capsule 0.4 mg PO 1XD 05/07/2405/07 History tramadol 50 mg tablet 50 mg PO 2XD 05/07/24 History Allergies Allergy/AdvReac Type Severity Reaction Status Date / Time No Known Allergies Allergy Verified 04/02/17 23:42 Visit Medications Acetaminophen (Acetaminophen 325 Mg Tablet) 650 mg PO Q6HR PRN PRN Reason: PAIN SCALE 1-3 (mild Stop: 06/06/24 20:29 Hydrocodone Bitart/Acetaminophen (Hydrocodone/Apap 5/325 Tablet) 1 tab PO Q6HR PRN PRN Reason: PAIN SCALE 4-6 (Moderate Stop: 05/12/24 20:30 Atorvastatin Calcium (Atorvastatin Calcium 20 Mg Tablet) 40 mg PO HS [facility] Stop: 06/07/24 20:59 Last Admin: 05/08/24 20:09 Dose: 40 mg Dextrose (Dextrose 50%-Water Inj 50 Ml Syringe) 25 ml IV Q15MIN PRN PRN Reason: BG 50-70 responsive npo pt Stop: 06/07/24 07:36 Last Admin: 05/08/24 07:47 Dose: 25 ml Dextrose (Dextrose 50%-Water Inj 50 Ml Syringe) 50 ml IV Q15MIN PRN PRN Reason: BG <50 OR BG <70 & pt unresponsive Stop: 06/07/24 07:36 Glucagon (Glucagon Inj 1 Mg Vial) 1 mg IM Q15MIN PRN PRN Reason: BG <70, and no IV access Lactated Ringer's (Lactated Ringers) 1,000 mls @ 75 mls/hr IV .[id number] [facility] Stop: 05/09/24 16:19 Last Admin: 05/09/24 03:07 Dose: 75 mls/hr Insulin Human Lispro (Insulin Lispro (Admelog) 1 Unit/0.01 Ml Unit) 0 unit SC AC [facility]; Protocol Stop: 06/07/24 11:29 Last Admin: 05/09/24 07:39 Dose: Not Given Sennosides (Senna Tablet) 1 tab PO QDAY [facility]; Protocol Stop: 06/08/24 08:59 Last Admin: 05/09/24 08:20 Dose: 1 tab Tamsulosin HCl (Tamsulosin Hcl 0.4 Mg Capsule) 0.4 mg PO QDAY AILYN Stop: 06/07/24 08:59 Last Admin: 05/09/24 08:20 Dose: 0.4 mg Discontinued Medications Non-Formulary Medication (Lidocaine [Aspercreme (Lidocaine)]) 1 patch TOPICAL Q12H PRN PRN Reason: pain Tamsulosin HCl (Tamsulosin Hcl 0.4 Mg Capsule) 0.4 mg PO X1 ONE Stop: 05/08/24 13:42 Last Admin: 05/08/24 13:46 Dose: 0.4 mg Assessment & Plan Plan A 88-year-old male patient with significant past medical history of dementia, diabetes mellitus, hypertension, BPH, shoulder arthroplasty 7 years ago, CVA initially presented to [facility] on 05/10/2023 for left shoulder pain and assessment for dislocation and admitted for acute kidney injury # Acute kidney injury Etiology, unknown-likely ATN in the setting of sudden worsening of renal functions -Patient was not communicating properly at his baseline. -[facility] records are reviewed, no evidence of low blood pressures, contrast, nephrotoxic medications, change in renal functions noted -No evidence of nephrotoxic medications, low pressures noted in [facility] -On 05/09/2024, BUN 48, creatinine 2.2 -Patient's baseline creatinine is 0.9-1.1 Plan -Renal ultrasound ordered -Urinary electrolytes are ordered to measure fractional excretion of sodium -Condom catheter was ordered to monitor urine output -Recommended to continue maintain IV fluids for now -Monitor renal functions and avoid nephrotoxic medications #Chronic shoulder dislocation #Hypertension #Hyperlipidemia #Dementia #History of CVA #BPH -Rest of the medical conditions to be treated as per primary team Thank you for allowing us us to involved in the care of the patient Patient plan of care was discussed with the attending physician, Dr. Jase Moore, PGY1 Attending Provider Attestation/Addendum Patient seen and examined with resident physician Dr. Zabala. Note reviewed, agree with findings and recommendations. Unexplained NOVA. No inciting factors. Suspect prerenal azotemia from decreased p.o. intake. Will monitor very closely. Thank you Fredis for allowing me to participate in the care of Mr. Barrett
--- NOTE | 2024-05-09 14:25 | PCS.ST ---
Continue D2 with thins. 1:1 FEEDER needed. No further ELECTRONICS SPECIALIST services needed. see report for additional details.
--- NOTE | 2024-05-09 14:45 | PD.RESPRO ---
Documentation for date of: 05/09/24 Subjective Subjective Interval history: No acute events overnight.?Patient seen and examined at bedside this AM.?Patient is slightly more interactive this morning than yesterday, verbally responds to questions in Thai. Per speech evaluation, patient needs to be spoon-fed.?Patient denies pain. Labs and vitals were reviewed.?Creatinine is still 2.2 unfortunately despite receiving fluids overnight, receiving 2L of LR. Added another 1L of LR to be given overnight. Suspected possible urinary obstruction however bladder scans continued to show <100 cc urine and patient was noted to have active wetting of the briefs. Nephrology was therefore consulted. Orders placed for condom catheter and strict I&O measurements and charting. A renal US was ordered. Otherwise, as patient is full code and has chronic shoulder dislocation as well as failure to thrive, would like to plan for goals of care discussion with primary decision-maker. Review of systems otherwise negative except what is mentioned above. Exam Vital Signs Temp Pulse Resp BP Pulse Ox O2 Del Method 98.6 F 67 17 144/60 H 99 Room Air 05/09/24 12:00 05/09/24 12:00 05/09/24 12:00 05/09/24 12:00 05/09/24 12:00 05/09/24 12:00 Narrative Exam Physical Exam: GENERAL: Awake, answers questions very rarely and with low voice, appears stated age HEENT: NC/AT. Moist mucosa. PERRLA/EOMI. CARDIO: Heart RRR, II/ systolic ejection murmur noted on L sternal border 2nd intercostal space, no JVD. PULM: No coughing or visible SOB. Lungs CTA B/L. GI: Abdomen soft, NT/ND, +BS. SKIN/MSK/EXT: No wounds/discoloration/rashes/edema/amputations. +Pedal pulses present B/L. NEURO: Oriented x0 (unable to assess as patient answers very rarely), no focal neurological deficits noted - baseline dementia Objective Labs 05/10/24 05:41 05/10/24 05:41 Labs: Laboratory Results - last 24 hr 05/09/24 05:30 WBC 7.2 RBC 3.24 L Hgb 10.6 L Hct 30.9 L MCV 95 MCH 32.7 MCHC 34.3 RDW Std Deviation 49.1 H Plt Count 133 L Neut % (Auto) 59 Lymph % (Auto) 29 [place] % (Auto) 10 Eos % (Auto) 1 Baso % (Auto) 0 Neut # (Auto) 4.3 Lymph # (Auto) 2.1 [place] # (Auto) 0.7 Eos # (Auto) 0.1 Baso # (Auto) 0.0 Immature Gran # (Auto) 0.02 H Absolute Nucleated RBC 0.00 Immature Gran % 0 Nucleated RBC % 0 Sodium 141 Potassium 4.2 Chloride 109 H Carbon Dioxide 24.0 Anion Gap 8 BUN 48 H Creatinine 2.2 H Estim Creat Clear Calc Not Performed. eGFR 28 L BUN/Creatinine Ratio 22 H Glucose 95 Calculated Osmolality 293 Calcium 9.1 Corrected Calcium 9.3 Total Bilirubin 0.9 AST 17 ALT 11 Alkaline Phosphatase 115 Total Protein 5.9 Albumin 3.7 Globulin 2.2 L Albumin/Globulin Ratio 1.7 Quality Measures Quality Measures VTE prophylaxis Advance care planning discussed with:: patient Assessment & Plan Assessment Current Active Medications: Generic Name Dose Route Start Last Admin Trade Name Freq PRN Reason Stop Dose Admin Acetaminophen 650 mg 05/07/24 20:30 Acetaminophen 325 Mg Tablet PO 06/06/24 20:29 Q6HR PRN PAIN SCALE 1-3 (mild Hydrocodone Bitart/Acetaminophen 1 tab 05/07/24 20:31 Hydrocodone/Apap 5/325 Tablet PO 05/12/24 20:30 Q6HR PRN PAIN SCALE 4-6 (Moderate Atorvastatin Calcium 40 mg 05/08/24 21:00 05/08/24 20:09 Atorvastatin Calcium 20 Mg Tablet PO 06/07/24 20:59 40 mg HS AILYN Administration Dextrose 25 ml 05/08/24 07:37 05/08/24 07:47 Dextrose 50%-Water Inj 50 Ml Syringe IV 06/07/24 07:36 25 ml Q15MIN PRN Administration BG 50-70 responsive npo pt Dextrose 50 ml 05/08/24 07:37 Dextrose 50%-Water Inj 50 Ml Syringe IV 06/07/24 07:36 Q15MIN PRN BG <50 OR BG <70 & pt unresponsive Glucagon 1 mg 05/08/24 07:37 Glucagon Inj 1 Mg Vial IM Q15MIN PRN BG <70, and no IV access Lactated Ringer's 1,000 mls @ 75 mls/hr 05/08/24 13:40 05/09/24 03:07 Lactated Ringers IV 05/09/24 16:19 75 mls/hr .[id number] AILYN Administration Insulin Human Lispro 0 unit 05/08/24 11:30 05/09/24 07:39 Insulin Lispro (Admelog) 1 Unit/0.01 Ml Unit SC 06/07/24 11:29 Not Given AC AILYN Protocol Sennosides 1 tab 05/09/24 09:00 05/09/24 08:20 Senna Tablet PO 06/08/24 08:59 1 tab QDAY [facility] Administration Protocol Tamsulosin HCl 0.4 mg 05/08/24 09:00 05/09/24 08:20 Tamsulosin Hcl 0.4 Mg Capsule PO 06/07/24 08:59 0.4 mg QDAY AILYN Administration Plan 88-year-old male with past medical history of dementia, hypertension, BPH, shoulder arthroplasty 7 years ago, CVA presented after being transferred from [facility] for a shoulder dislocation; pending SNF placement. #NOVA #Prerenal Azotemia Patient has abrupt elevation in creatinine from 1.0 to 2.2/2.3 No new medications were started; moreover, suspicion is that the patient is having prerenal azotemia Patient does have poor p.o. intake and appears dry on examination Obstructive etiology seems unlikely given low bladder volume and is actively urinating Plan: IV resuscitation, patient received 3L thus far Bladder scan continues to show <100 cc; will monitor Avoid nephrotoxic agents Follow-up morning labs Nephrology consulted, appreciate recommendations Condom catheter order placed Strict I&O measurement and charting #Chronic shoulder dislocation Patient is transferring back from [facility] after no surgery was completed as the patient is not a candidate Per note from [facility] orthopedic surgeon, Dr. Chaidez, due to the chronicity of the dislocation and the fact that there is no neurovascular compromise or skin compromise a reduction under anesthesia would bring significant risks to the patient; furthermore, a close reduction has the risk of fracture. As such, recommendation is that the patient's pain be managed and that patient can follow-up outpatient with orthopedic surgery Plan: Multimodal analgesia Follow-up with orthopedic surgery outpatient #Hypertension #Hyperlipidemia Patient is on home amlodipine 10 mg, hydrochlorothiazide 12.5 mg, losartan 100 mg Patient also takes home atorvastatin 40 mg p.o. at bedtime Plan: Restart when appropriate, patient's blood pressure within target level at this time #Dementia #History of CVA #BPH Chronic medical conditions, not currently pertinent to the following presentation Continue home tamsulosin Hospital Management; Lines: PIV Diet: Carb consistent, dysphagia II Bowel: Senna GI prophylaxis: not needed DVT prophylaxis: SCDs Dispo: Treating NOVA, will discharge back to [facility] once cleared Code: Full Patient plan of care was discussed with the attending physician, Dr. Urbina. Jenny Bailon, PGY-2 Attending Provider Attestation/Addendum I have examined the patient, reviewed labs and imaging findings, discussed the case with the resident(s), and reviewed entered orders. I agree with the plan of care as outlined in this note, with these additional summaries/recommendations: Patient seen at bedside. No acute overnight events. Despite IV fluids patient's renal function has only mildly improved. Creatinine 2.3 yesterday and 2.2 today. Nephrology consulted and pending urine electrolytes. Renal ultrasound showed mild right cortical thinning and increased echogenicity of the left kidney with no nephrolithiasis or hydronephrosis. Condom Cates catheter ordered to monitor urinary output. Continue as needed pain management for dislocation of the reverse left shoulder arthroplasty. Patient has severe underlying dementia and no reliable history obtained today. Blood pressure 123/54 today and we will continue to hold home antihypertensives for now and reinstitute as tolerated. Repeat hematology and chemistry panel in AM. Dr. Carlitos MD
[2024-05-09 16:00] VITALS: BP 155/57; PULSE 63; RESP 17; TEMP 36.8; O2SAT 98
[2024-05-09 20:00] VITALS: BP 98/68; PULSE 67; RESP 18; TEMP 36.9; O2SAT 97
[2024-05-09] MEDS: ATORVASTATIN CALCIUM 20 MG TABLET 40 MG PO (20:03)
[2024-05-09 20:31] LABS: Collection Type, Urine Clean Catch
[2024-05-09 20:40] LABS: Bilirubin,Urine Negative (Negative); Blood,Urine Negative (Negative); Clarity,Urine Clear (Clear/Hazy); Color,Urine Lt-Yellow (Lt Yel-Yel); Culture Indicated,Urine Not Indicated; Glucose, Urine Negative (Negative); Ketones,Urine Trace (Negative); Leukocyte Esterase,Urine Negative (Negative); Nitrite,Urine Negative (Negative); Protein,Urine Negative (Neg - Trace); RBC,Urine < 1 /hpf (0-3); Specific Gravity,Urine 1.016 (1.001-1.035); Squamous Epithelial Cell,Urine < 1 /hpf (0-5); Urobilinogen,Urine Negative mg/dL (0.0-1.0); WBC,Urine 1 /hpf (0-5)
[2024-05-09 20:47] LABS: Creatinine,Random Urine 83 mg/dL (30-125); Protein Total, Random Urine 16 mg/dL (1-14); Sodium,Urine Random 92.9 mMol/L (20.0-110.0)
[2024-05-10] VITALS: BP 162/74; PULSE 70; RESP 18; TEMP 36.8; O2SAT 97
[2024-05-10 04:00] VITALS: BP 151/60; PULSE 65; RESP 18; TEMP 36.6; O2SAT 98
[2024-05-10 06:31] LABS: Basophils % (Auto) 0 % (0-2.5); Eosinophils # (Auto) 0.1 Thou/mm3 (0.0-0.5); Eosinophils % (Auto) 1 % (0-10); Hematocrit 31.9 % (41.0-53.0); Immature Granulocytes % (Auto) 0 % (0-0); Immature Granulocytes Auto 0.02 Thou/mm3 (0.00-0.00); Lymphocytes # (Auto) 2.5 Thou/mm3 (1.0-4.8); Lymphocytes % (Auto) 36 % (10-50); Mean Corpuscular HGB Conc 34.5 g/dl (31.0-37.0); Mean Corpuscular Volume 96 fL (80-100); Monocytes # (Auto) 0.5 Thou/mm3 (0.0-0.8); Monocytes % (Auto) 8 % (0-12); Neutrophils # (Auto) 3.7 Thou/mm3 (1.8-7.7); Neutrophils % (Auto) 54 % (37-80); Nucleated Red Blood Cell % 0 /100 WBC (0); Platelet Count 122 Thou/mm3 (140-440); RDW Standard Deviation 48.9 fL (35.1-43.9); Red Blood Count 3.33 Miln/mm3 (4.50-5.90); White Blood Count 6.8 Thou/mm3 (3.8-10.6)
[2024-05-10 07:11] LABS: Alanine Aminotransferase 15 U/L (10-49); Albumin, Serum 3.8 gm/dL (3.4-4.8); Albumin/Globulin Ratio 1.5 (1.2-2.2); Alkaline Phosphatase 120 U/L (46-116); Anion Gap 10 (7-16); Aspartate Amino Transferase 23 U/L (0-34); BUN/Creatinine Ratio 25 Ratio (12-20); Bilirubin,Total 0.9 mg/dL (0.3-1.2); Blood Urea Nitrogen 25 mg/dL (9-23); Calcium 9.6 mg/dL (8.3-10.6); Calcium (Corrected) 9.8 mg/dL (8.5-10.1); Carbon Dioxide 22.6 mMol/L (20.0-31.0); Chloride 110 mMol/L (98-107); Globulin 2.6 gm/dL (2.3-3.5); Glucose 93 mg/dL (74-106); Osmolality,Calculated 289 (275-295); Potassium 4.3 mMol/L (3.4-5.1); Sodium 143 mMol/L (136-145); Total Protein 6.4 gm/dL (5.7-8.2); eGFR > 60 See Note
[2024-05-10 07:56] VITALS: BP 173/70; PULSE 67; RESP 17; TEMP 36.5; O2SAT 99
[2024-05-10] MEDS: TAMSULOSIN HCL 0.4 MG CAPSULE PO (08:49)
[2024-05-10] MEDS: SENNA TABLET 1 TAB PO (08:49)
--- NOTE | 2024-05-10 09:02 | PC.SS ---
Follow up note: Pt is d/c for today back to [facility]. SS has informed Sharifa Dickinson from [facility] Sharifa Handy. patient's brother, Carolyn is his contact (phone#[phone]) and Sally, phone# [phone]. Brother Carolyn is aware of d/c plan. SS reviewed IMM Right's with brother but he refused [employer]'s phone#.
[2024-05-10 10:23] VITALS: BP 173/70; PULSE 67
[2024-05-10] MEDS: amLODIPine BESYLATE 5 MG TABLET 10 MG PO (10:23)
--- NOTE | 2024-05-10 11:57 | PC.NURSE ---
gave report to Lorraine at [facility]
[2024-05-10 12:00] VITALS: BP 156/58; PULSE 76; RESP 17; TEMP 36.7; O2SAT 96
--- NOTE | 2024-05-10 12:08 | PC.SS ---
Addendum entered by Berta Chávez 05/10/24 15:24: Around 2:34pm SS received call from [facility] at [facility] transportation has been set back to 4pm due to city levels being high. Original Note: SS has setup gurney transport with Shana from [facility] then he transfer the call to the reservation line. SS spoke to Lisa from [facility], reservation line and requested [facility] for 3pm to [facility]. Ref# [id number]. has sent patient's facesheet and ambulance form signed by physician to [facility] using [employer]. SS has spoken to Laura at [facility] who has been contacted by Bridgette from [facility] and transportation is setup for 3pm. Bedside nurse, Zee is aware. Jacque PERLA is aware, patient's brother, Carolyn is aware. Sharifa Dickinson at [facility] is aware.
--- NOTE | 2024-05-10 13:33 | PD.RESPRO ---
Documentation for date of: 05/10/24 Subjective Subjective Interval history: Patient is Czech-speaking, seems to have some hearing loss and had difficulty in communicating, so most of the history is taken from chart review. At baseline, patient is a resident at [facility] and is wheelchair dependent with baseline dementia A 88-year-old male patient with significant past medical history of dementia, diabetes mellitus, hypertension, BPH, shoulder arthroplasty 7 years ago, CVA initially presented to [facility] on 05/10/2023 for left shoulder pain and assessment for dislocation. During that time, patient was transferred to [facility] for further management. In [facility], other potation in that facility stated that patient was not a good surgical candidate for surgical intervention and the dislocation appears to be of chronic etiology. So patient was recommended to follow-up in outpatient basis with the senior talent acquisition specialist. So patient was transferred back to [facility] on 05/07/2024. Per chart review, patient did not get any procedures, contrast, pain medications Chart review of [facility] medical records, did not show any procedures, nephrotoxic medications, pain medications, low blood pressures during the hospitalization. Initial renal functions appears to be normal on 05/07/2024, on 05/08/2024 creatinine seems to be increased to 2.2. No low blood pressures/nephrotoxic medications noted during his hospital stay in [facility] 05/09/2024 Patient was seen and examined at the bedside. No acute overnight events. Patient appears to have difficulty to communicate at baseline. Denies any other complaints. Vitals are stable. Labs showed BUN 48, creatinine 2.2. Urine electrolytes are ordered Patient was getting renal ultrasound at the time of examination which showed a simple renal cyst in both kidneys. No hydroureteronephrosis noted Recommended to place condom catheter to monitor urine output as patient is wetting his diaper and not able to calculate output accurately. 05/10/2024 Patient was seen and examined at bedside. No acute overnight events. Vitals are stable. Labs showed sodium 143, potassium 4.3, chloride 110, bicarb 22.6, BUN 25, creatinine 1 Condom catheter also showed adequate amount of urine. Unsure of the cause of the NOVA. Continue current management Exam Vital Signs Temp Pulse Resp BP Pulse Ox O2 Del Method 98.0 F 76 17 156/58 H 96 Room Air 05/10/24 12:00 05/10/24 12:00 05/10/24 12:00 05/10/24 12:00 05/10/24 12:00 05/10/24 12:00 Narrative Exam General: Awake. HEENT: Normocephalic, atraumatic, mucous membranes moist. Heart: Regular rate and rhythm, no murmurs. Lungs: Clear to auscultation with no wheezing or crackles. Abdomen: Soft, nondistended, nontender, positive bowel sounds. ?No guarding or rebound tenderness. Neurologic: no gross neurological deficit, and patient able to move all 4 extremities. Extremities: No edema. Skin: No rash or ecchymoses. Objective Labs 05/10/24 05:41 05/10/24 05:41 Labs: Laboratory Results - last 24 hr 05/09/24 05/10/24 20:18 05:41 WBC 6.8 RBC 3.33 L Hgb 11.0 L Hct 31.9 L MCV 96 MCH 33.0 MCHC 34.5 RDW Std Deviation 48.9 H Plt Count 122 L Neut % (Auto) 54 Lymph % (Auto) 36 [place] % (Auto) 8 Eos % (Auto) 1 Baso % (Auto) 0 Neut # (Auto) 3.7 Lymph # (Auto) 2.5 [place] # (Auto) 0.5 Eos # (Auto) 0.1 Baso # (Auto) 0.0 Immature Gran # (Auto) 0.02 H Absolute Nucleated RBC 0.00 Immature Gran % 0 Nucleated RBC % 0 Sodium 143 Potassium 4.3 Chloride 110 H Carbon Dioxide 22.6 Anion Gap 10 BUN 25 H Creatinine 1.0 D Estim Creat Clear Calc Not Performed. eGFR > 60 BUN/Creatinine Ratio 25 H Glucose 93 Calculated Osmolality 289 Calcium 9.6 Corrected Calcium 9.8 Total Bilirubin 0.9 AST 23 ALT 15 Alkaline Phosphatase 120 H Total Protein 6.4 Albumin 3.8 Globulin 2.6 Albumin/Globulin Ratio 1.5 Ur Collection Type Clean Catch Urine Color Lt-Yellow Urine Clarity Clear Urine pH 6.0 Ur Specific [place] 1.016 Urine Protein Negative Urine Glucose (UA) Negative Urine Ketones Trace Urine Blood Negative Urine Nitrite Negative Urine Bilirubin Negative Urine Urobilinogen (Auto) Negative Ur Leukocyte Esterase Negative Urine RBC < 1 Urine WBC 1 Ur Squamous Epith Cells < 1 Urine Bacteria None Ur Culture Indicated? Not Indicated Ur Random Creatinine 83 U Random Total Protein 16 H Ur Random Sodium 92.9 Quality Measures Quality Measures VTE prophylaxis Advance care planning discussed with:: patient and other Assessment & Plan Assessment Current Active Medications: Generic Name Dose Route Start Last Admin Trade Name Freq PRN Reason Stop Dose Admin Acetaminophen 650 mg 05/07/24 20:30 Acetaminophen 325 Mg Tablet PO 06/06/24 20:29 Q6HR PRN PAIN SCALE 1-3 (mild Hydrocodone Bitart/Acetaminophen 1 tab 05/07/24 20:31 Hydrocodone/Apap 5/325 Tablet PO 05/12/24 20:30 Q6HR PRN PAIN SCALE 4-6 (Moderate Atorvastatin Calcium 40 mg 05/08/24 21:00 05/09/24 20:03 Atorvastatin Calcium 20 Mg Tablet PO 06/07/24 20:59 40 mg HS AILYN Administration Dextrose 25 ml 05/08/24 07:37 05/08/24 07:47 Dextrose 50%-Water Inj 50 Ml Syringe IV 06/07/24 07:36 25 ml Q15MIN PRN Administration BG 50-70 responsive npo pt Dextrose 50 ml 05/08/24 07:37 Dextrose 50%-Water Inj 50 Ml Syringe IV 06/07/24 07:36 Q15MIN PRN BG <50 OR BG <70 & pt unresponsive Glucagon 1 mg 05/08/24 07:37 Glucagon Inj 1 Mg Vial IM Q15MIN PRN BG <70, and no IV access Insulin Human Lispro 0 unit 05/08/24 11:30 05/10/24 11:47 Insulin Lispro (Admelog) 1 Unit/0.01 Ml Unit SC 06/07/24 11:29 Not Given AC AILYN Protocol Sennosides 1 tab 05/09/24 09:00 05/10/24 08:49 Senna Tablet PO 06/08/24 08:59 1 tab QDAY AILYN Administration Protocol Tamsulosin HCl 0.4 mg 05/08/24 09:00 05/10/24 08:49 Tamsulosin Hcl 0.4 Mg Capsule PO 06/07/24 08:59 0.4 mg QDAY AILYN Administration Plan A 88-year-old male patient with significant past medical history of dementia, diabetes mellitus, hypertension, BPH, shoulder arthroplasty 7 years ago, CVA initially presented to [facility] on 05/10/2023 for left shoulder pain and assessment for dislocation and admitted for acute kidney injury # Acute kidney injury, resolved Etiology, unknown-likely prerenal -Patient was not communicating properly at his baseline. -[facility] records are reviewed, no evidence of low blood pressures, contrast, nephrotoxic medications, change in renal functions noted -No evidence of nephrotoxic medications, low pressures noted in [facility] -On 05/09/2024, BUN 48, creatinine 2.2 >> 3/10, Cr 1.0 -Patient's baseline creatinine is 0.9-1.1 -Renal ultrasound - Mild right cortical thinning and increased echogenicity of the left kidney, which can be seen with medical renal disease. No obstructive nephrolithiasis or hydronephrosis identified. Mild enlargement of the prostate gland Plan -Monitor renal functions and avoid nephrotoxic medications #Chronic shoulder dislocation #Hypertension #Hyperlipidemia #Dementia #History of CVA #BPH -Rest of the medical conditions to be treated as per primary team Thank you for allowing us us to involved in the care of the patient Patient plan of care was discussed with the attending physician, Dr. Jase Moore, PGY1 Attending Provider Attestation/Addendum Patient seen and examined with resident physician Dr. Zabala. Note reviewed, agree with findings and recommendations. Creatinine normalized.
--- NOTE | 2024-05-10 13:47 | ESDS_ITS ---
<Statement entered by Jenny Bailon MD - 05/11/24 08:22> Patient was seen and examined by me personally. I have reviewed the below documentation by the team resident and agree with its findings with any exceptions as below. Discharge plan was discussed with the attending, Dr. Urbina. Patient seen this morning, awake and interactive. Denying pain. Creatinine improved to baseline, therefore patient was discharged back to his facility at [facility]. Recommendation from [facility] orthopedics was for outpatient follow up with Ortho for the chronic dislocated shoulder. Jenny Bailon, PGY-2 Planned Discharge Date 05/10/24 DS: Providers Provider Date of admission: 05/07/24 20:10 Primary care physician: Physician No Primary/Family Admitting Provider: Fredis Urbina MD Attending Provider on Admission: Fredis Urbina MD Consults: 05/07/24 20:24 Referral Physical Therapy Routine Comment: Physician Instructions: 05/08/24 07:42 Referral Speech Therapy Routine Comment: 05/09/24 10:37 Consult to Nephrology Stat Comment: NOVA Consulting Provider: Branden Laguna Attending Provider on DC: Stephen Shah MD Discharging Provider: Stephen Shah MD DS: Diagnosis Problem List Completed Was Problem List Reviewed/Reconciled?: Yes Hospital Course Hospital Course Hospital course: 88-year-old male with past medical history of dementia, diabetes mellitus, hypertension, BPH, shoulder arthroplasty 7 years ago, and CVA who initially presented to [facility] ED on 05/05/2024 due to left shoulder pain and assessment for dislocation. At that time, patient was transferred to [facility] for orthopedic coverage. Per chart review, [facility] orthopedics stated that this patient was not a candidate for surgical intervention for the dislocation and that the dislocation was of chronic status. The recommendation was that the patient follow-up with rating specialist outpatient. Patient transferred back to [facility] on 05/07/2024. Patient is a resident at [facility] and he is wheelchair dependent at baseline with dementia. During hospitalization there was concern for possible acute kidney injury likely secondary to poor p.o. intake; however, patient's creatinine level went back to baseline. Patient will be discharged to SNF with the following strict instructions. Follow up with PCP within 1 week of discharge Please obtain a referral for Orthopedics for follow up of the dislocated shoulder. Patient did not receive any surgery per [facility] Orthopedic recommendation patient is not a surgical candidate and recommended outpatient management. Hold hydrochlorothiazide 12.5 mg due to recent kidney injury, resume after repeat renal panel labs Continue rest of medications as previously prescribed Return to the ED or call EMS if symptoms return and/or worsen. Hospital Diagnosis: #NOVA, resolved #Prerenal Azotemia, resolved #Chronic shoulder dislocation #Hypertension #Hyperlipidemia #Dementia #History of CVA #BPH Stephen Shah, PGY-1 Status at Discharge Overall status at discharge: patient is progressing back to baseline Time Spent with Patient Time attestation: Total time spent providing and/or coordinating discharge services: 45 minutes Time spent: Greater than 30 minutes Exam Vital Signs Temp Pulse Resp BP Pulse Ox O2 Del Method 98.0 F 76 17 156/58 H 96 Room Air 05/10/24 12:00 05/10/24 12:00 05/10/24 12:00 05/10/24 12:00 05/10/24 12:00 05/10/24 12:00 Narrative Exam Physical Exam: GENERAL: Awake, answers questions very rarely and with low voice, appears stated age HEENT: NC/AT. Moist mucosa. PERRLA/EOMI. CARDIO: Heart RRR, II/ systolic ejection murmur noted on L sternal border 2nd intercostal space, no JVD. PULM: No coughing or visible SOB. Lungs CTA B/L. GI: Abdomen soft, NT/ND, +BS. SKIN/MSK/EXT: No wounds/discoloration/rashes/edema/amputations. +Pedal pulses present B/L. NEURO: Oriented x0 (unable to assess as patient answers very rarely), no focal neurological deficits noted - baseline dementia Discharge Plan Plan Patient Disposition: Xfer Skilled Nsg Fac (SNF) Disposition Comment: Jennifer Araujo Patient condition on transfer: Stable Care Plan Goals: Discharge Recommendations: -Follow up with PCP within 1 week of discharge -Please obtain a referral for Orthopedics for follow up of the dislocated shoulder. Patient did not receive any surgery per [facility] Orthopedic recommendation patient is not a surgical candidate and recommended outpatient management. -Hold hydrochlorothiazide 12.5 mg due to recent kidney injury, resume after repeat renal panel labs -Continue rest of medications as previously prescribed -Return to the ED or call EMS if symptoms return and/or worsen. Prescriptions/Referrals Prescriptions/Med Rec: Continued atorvastatin [Lipitor] 40 MG tablet 40 mg PO HS Qty: 0 tramadol 50 mg tablet 50 mg PO 2XD tamsulosin 0.4 mg capsule 0.4 mg PO 1XD amlodipine 10 mg tablet 10 mg PO 1XD losartan 100 mg tablet 100 mg PO 1XD lidocaine [Aspercreme (lidocaine)] 4 % adhesive patch,medicated 1 patch topical Q12H PRN (Reason: pain) naproxen sodium [Flanax (naproxen)] 220 mg tablet 220 mg PO Q8H acetaminophen 325 mg capsule 325 mg PO Q4H PRN (Reason: pain (scale score 1-3)) Held hydrochlorothiazide 12.5 mg capsule 12.5 mg PO 1XD Hold Instructions: Resume on 05/17/24. Hold due to recent NOVA, resume with follow up renal panel No Action amlodipine 5 mg Tablet 10 mg PO QDAY Qty: 30 0RF Referrals: No Primary/Family,Physician [Primary Care Provider] - Patient/Caregiver Discharge Instructions Education Materials: Understanding Shoulder Instability Print Language: Somali Stand Alone Forms: [employer] Award Info., Patient Portal Info Letter Discharge Order Discharge Orders: Discharge (Routine); Ordered 05/10/24 Ordered By: Stephen Shah Quality Discharge Quality Measures VTE prophylaxis Attestestation MD Attestation I have examined the patient, reviewed labs and imaging findings, discussed the case with the resident(s), and reviewed entered orders. I agree with the plan of care as outlined in this note. Dr. Carlitos MD
== END 2024-05-10 16:55 | disposition skilled nursing facility (03) | DRG 683 ==
PROVIDERS: Internal Medicine; Student in an Organized Health Care Education/Training Program; Admitting Provider Student in an Organized Health Care Education/Training Program; Visit Provider Student in an Organized Health Care Education/Training Program
DX: N17.9 Acute kidney failure, unspecified (principal); T84.028A Dislocation of other internal joint prosthesis, initial encounter; E11.9 Type 2 diabetes mellitus without complications; I10 Essential (primary) hypertension; N40.0 Benign prostatic hyperplasia without lower urinary tract symptoms; F03.90 Unspecified dementia, unspecified severity, without behavioral disturbance, psychotic disturbance, mood disturbance, and anxiety; E78.5 Hyperlipidemia, unspecified; R62.7 Adult failure to thrive; H91.90 Unspecified hearing loss, unspecified ear; N28.1 Cyst of kidney, acquired; Z86.73 Personal history of transient ischemic attack (TIA), and cerebral infarction without residual deficits; Z99.3 Dependence on wheelchair; Z96.612 Presence of left artificial shoulder joint; Z79.899 Other long term (current) drug therapy; Z75.1 Person awaiting admission to adequate facility elsewhere; Y79.2 Prosthetic and other implants, materials and accessory orthopedic devices associated with adverse incidents; X58.XXXA Exposure to other specified factors, initial encounter; Y83.8 Other surgical procedures as the cause of abnormal reaction of the patient, or of later complication, without mention of misadventure at the time of the procedure
CPT/HCPCS: 36415; 76770; 80053; 80069; 81001; 82570; 84156; 84300; 85025; 87081; 92526; 92610; 97161; J7120; A9270